=== PATIENT | female | born 1945 | race Caucasian/White ===

== ENCOUNTER 2017-06-13 12:00 | Day surgery (SDC) | payer MEDICARE, OTHER ==
[~2017-06-13] VITALS: Ht 165.1 cm; Wt 80.3 kg
--- NOTE | ~2017-06-13 | EGD ---
EGD REPORT [facility] [address] [address] NAME: KRISTI CASTRO : [birth year] STATUS : REG [facility]#: [id number] AGE: 71 ADM/REG DATE : 06/13/17 MR#: [id number] REPORT SERV DATE: 06/13/17 DICTATED BY: MIGUELINA SCHREIBER DATE: 06/13/17 REPORT STATUS : Draft TRANSCRIBED BY: [facility] DATE: 06/13/17 Endoscopy Center Patient Name: Kristi Castro Date of : 1945 Attending MD: MIGUELINA SCHREIBER MD Procedure Date No Time: 06/13/2017 Procedure: Upper GI endoscopy Indications: Dysphagia, Gastro-esophageal reflux disease Referring MD: ARUNA SANTORO Medicines: See the Anesthesia note for documentation of the administered medications Complications: No immediate complications. Procedure: Pre-Anesthesia Assessment: - ASA Grade Assessment: III - A patient with severe systemic disease. After obtaining informed consent, the endoscope was passed under direct vision. Throughout the procedure, the patient's blood pressure, pulse, and oxygen saturations were monitored continuously. The GIF [id number] was introduced through the mouth, and advanced to the second part of duodenum. The upper GI endoscopy was accomplished without difficulty. The patient tolerated the procedure well. Findings: A small hiatus hernia was present. A guidewire was placed and the scope was withdrawn. Dilation was performed with a Savary dilator with no resistance at 48 Fr. Two 5 mm sessile polyps with were found in the second part of the duodenum. Biopsies were taken with a cold forceps for histology. One 10 mm sessile polyp with looked like bled recently was found in the gastric antrum. Area was successfully injected with 2 mL of a 1:10,000 solution of epinephrine for prevent bleeding. The polyp was removed with a hot snare. Resection and retrieval were complete. To prevent bleeding post-intervention, one hemostatic clip was successfully placed. Polyp removed via mouth via Tim retrieval net A single 10 mm sessile polyp with no stigmata of recent bleeding was found in the gastric body. The polyp was removed with a hot snare. Resection and retrieval were complete. To prevent bleeding post-intervention, one hemostatic clip was successfully placed. Polyp removed via mouth via Tim retrieval net A single 10 mm sessile polyp with was found in the duodenal bulb. Biopsies were taken with a cold forceps for histology. Impression: - Hiatus hernia. Dilated. EGD REPORT [address] [place]. [address] NAME: KRISTI CASTRO : [birth year] STATUS : [place] [facility] [place] [facility] [place] PAT#: [id number] AGE: 71 ADM/REG DATE : 06/13/17 MR#: [id number] REPORT SERV DATE: 06/13/17 DICTATED BY: MIGUELINA SCHREIBER DATE: 06/13/17 REPORT STATUS : Draft TRANSCRIBED BY: [employer] DATE: 06/13/17 - Two duodenal polyps. Biopsied. - One gastric polyp. Resected and retrieved. Injected. Clip was placed. - A single gastric polyp. Resected and retrieved. Clip was placed. - A single duodenal polyp. Biopsied. Recommendation: - Patient has a contact number available for emergencies. The signs and symptoms of potential delayed complications were discussed with the patient. Return to normal activities tomorrow. Written discharge instructions were provided to the patient. - Clear liquid diet. - Clear liquids today, soft diet tomorrow, regular diet the following day - FOR YOUR BIOPSY RESULTS: Please go to [email or web address] and register to receive your results via the portal. Your biopsy results will be posted there in about 7 to 10 days. IF you do not see result in 10 days, call office. - Continue present medications. - Restart Eliquis tomorrow Report any black stools or blood per rectum over next 2 weeks Procedure Code(s): --- Professional --- 22397, Esophagogastroduodenoscopy, flexible, transoral; with removal of tumor(s), polyp(s), or other lesion(s) by snare technique 72435, Esophagogastroduodenoscopy, flexible, transoral; with insertion of guide wire followed by passage of dilator(s) through esophagus over guide wire 40161, 59, Esophagogastroduodenoscopy, flexible, transoral; with biopsy, single or multiple Diagnosis Code(s): --- Professional --- K44.9, Diaphragmatic hernia without obstruction or gangrene K31.7, Polyp of stomach and duodenum R13.10, Dysphagia, unspecified K21.9, Gastro-esophageal reflux disease without esophagitis CPT copyright 2013 [employer]. All rights reserved. The codes documented in this report are preliminary and upon software applications engineer review may EGD REPORT [place] [address] [address] NAME: KRISTI CASTRO : [birth year] STATUS : REG [facility] [place] [facility] [place] PAT#: [id number] AGE: 71 ADM/REG DATE : 06/13/17 MR#: [id number] REPORT SERV DATE: 06/13/17 DICTATED BY: MIGUELINA SCHREIBER DATE: 06/13/17 REPORT STATUS : Draft TRANSCRIBED BY: [employer] DATE: 06/13/17 be revised to meet current compliance requirements. Miguelina Schreiber MD MIGUELINA SCHREIBER MD 06/13/2017 1:53 PM This report has been signed electronically. Number of Addenda: 0 Note Initiated On: 06/13/2017 12:48 PM Scope Withdrawal Time 0 hours 0 minutes 0 seconds [facility] [address] [address]
[~2017-06-13 12:00] MED LIST: AMB5 PO; AMITIZA24 PO; AMOXIL500C PO; APRES25 PO; ASAB PO; AUG500 PO; BL FLAX SEED1000 MG PO; CITRACAL PO; CO Q-10100 MG PO; CORAL CALCIUM PO; COZAAR100 MG PO; ELIQUIS 5 MG TAB5 MG PO; GNP FLAX SEE1000 MG OR; KDUR10 PO; LEVOTHYROXIN112 MCG PO; MAX25 PO; NORV5 PO; PEP20 PO; PRAVACHOL40 MG PO; PRILOSEC40 MG PO; PROAIR HFA INH; SLOWMAG PO; TAMBOCOR PO; TOPXL50 PO; VITAMIN D31000 UNIT PO; VITC500 PO; VITE PO; [UNRECOGNIZED DRUG - OTHER]
[2017-06-13 14:46] LABS: BASOPHILS 0.5 %; BASOPHILS ABSOLUTE 0.03 10/3/uL (0.0-0.16); EOSINOPHILS 2.5 %; EOSINOPHILS ABSOLUTE 0.14 10/3/uL (0.0-0.53); HEMATOCRIT 40.4 % (36.0-48.0); HEMOGLOBIN 13.6 g/dL (12.0-16.0); IMMATURE GRANULOCYTES 0.2 %; IMMATURE GRANULOCYTES ABSOLUTE 0.01 10/3/uL (0.0-0.11); LYMPHOCYTES 27.9 %; LYMPHOCYTES ABSOLUTE 1.59 10/3/uL (0.67-4.30); MEAN CORPUS HGB CONC 33.7 g/dL (32.0-36.0); MEAN CORPUSCULAR HEMOGLOB 31.1 pg (26.0-34.0); MEAN CORPUSCULAR VOLUME 92.4 fL (80-100); MEAN PLATELET VOLUME 10.1 fL (9.2-13.0); MONOCYTES ABSOLUTE 0.57 10/3/uL (0.21-1.20); NEUTROPHILS 58.9 %; NEUTROPHILS ABSOLUTE 3.36 10/3/uL (2.02-8.40); PLATELET COUNT 165 10/3/uL (150-400); RBC DISTRIBUTION WIDTH 13.6 % (12.0-16.0); RED CELL COUNT 4.37 10/6/uL (4.0-5.6); WHITE BLOOD CELLS 5.7 10/3/uL (4.5-10.5)
[2017-06-13 14:48] LABS: MANUAL DIFF NO %
[2017-06-20] MEDS ORDERED: AMITIZA24 PO (13:47)
== END 2017-06-13 23:59 | disposition home or self-care (01) ==
LOC: DMU 12:00
PROVIDERS: Internal Medicine Gastroenterology
PROC: 0D758ZZ Dilation of Esophagus, Via Natural or Artificial Opening Endoscopic (ICD-10-PCS; 2017-06-13)
PROC: 0DB68ZX Excision of Stomach, Via Natural or Artificial Opening Endoscopic, Diagnostic (ICD-10-PCS; principal; 2017-06-13 13:00)
PROC: 0DB98ZX Excision of Duodenum, Via Natural or Artificial Opening Endoscopic, Diagnostic (ICD-10-PCS; 2017-06-13 13:00)
DX: D13.2 Benign neoplasm of duodenum (principal); K31.7 Polyp of stomach and duodenum; K44.9 Diaphragmatic hernia without obstruction or gangrene; Q43.8 Other specified congenital malformations of intestine; I10 Essential (primary) hypertension; I48.91 Unspecified atrial fibrillation; J45.909 Unspecified asthma, uncomplicated; M19.90 Unspecified osteoarthritis, unspecified site; E89.0 Postprocedural hypothyroidism; K21.9 Gastro-esophageal reflux disease without esophagitis; K58.9 Irritable bowel syndrome, unspecified; I49.9 Cardiac arrhythmia, unspecified; Z85.3 Personal history of malignant neoplasm of breast; Z88.8 Allergy status to other drugs, medicaments and biological substances; Z79.899 Other long term (current) drug therapy; Z90.12 Acquired absence of left breast and nipple; Z98.51 Tubal ligation status; Z98.890 Other specified postprocedural states
CPT/HCPCS: 85025; 88305